=== PATIENT | male | born 1980 | race Caucasian/White ===

== ENCOUNTER 2022-09-07 02:02 | Day surgery (SDC) | payer OTHER, SELFPAY ==
[2022-09-03 14:07] VITALS: BMI 31.6
--- NOTE | 2022-09-03 14:46 | PC.NURSE ---
Report to the Outpatient Waiting Room, entrance under the green pavilion located off [facility], at time _11:00_ on date _09/07/22_. Planned Procedure Time: _1300 . Time changes happen often and if your time is changed the preop area will call you the afternoon before. - You and your visitor will be asked to self-screen and do not enter if you have any COVID symptoms. - Two visitors are permitted, but We encourage only one visitor and NO visitors under age 16 are allowed at this time. Your visitor will receive communication by the phone number that is given day of service. - The patient visitor is requested to social distance or may leave the building when not with patient due to restrictions. - A mask is OPTIONAL within the hospital. Patients may have clear liquids (water, carbonated beverages, clear teas, apple juice) until 3 hours prior to surgery with a maximum of 20 ounces. - No food from midnight until time of surgery. Take the following medications with a SIP of water the morning of surgery: _N/A Medications to discontinue per physician N/A Date to take last dose__N/A Please no make-up, nail greenlandic, hairspray, perfume, deodorant, or body powder the day of surgery. No jewelry (including any body piercings) or valuables the day of surgery, leave them at home. Please take a shower or bath the night before, or the morning of, surgery with an antibacterial soap. Wear comfortable, loose fitting clothing. - Jewelry must be removed prior to entering the operating room. Rings and piercings that are not removed may be cut off. - The hospital will not accept responsibility for valuables. - Please leave all valuables, including medications, at home the day of surgery. If you are going home after surgery, a licensed commercial trailer truck driver must drive you home. - NO public transportation without another adult. - We recommend that an adult stay with you for 24 hours following discharge. - We also recommend that you do not drive, make important decision, drink alcoholic beverages, or take any drugs that were not prescribed by your health care provider for at least 24 hours after your discharge time. Follow any additional instructions given to you from your surgeon. If you or anyone in your household have experienced Covid symptoms in the past week, please notify your surgeon or the nurse liaison at the phone number below for possible testing. Telephone instructions given to _BOB and asked if any additional questions and then verbalized understanding. Patient advised to call surgeon office or pre surgery nurse liaison [phone] if any additional questions.
[2022-09-07] VITALS (8 sets, daily range): BP systolic 96–130; BP diastolic 62–92; PULSE 60–86; RESP 12–16; TEMP 36.8–37; O2SAT 96–100
--- NOTE | 2022-09-07 12:12 | WPDHPUPDATE1 ---
History and Physical Update Update Date/Time: 09/07/22 12:12 History and Physical has been reviewed, including an updated exam of the patient. There are NO changes in the patient's condition. Risks, benefits, and alternatives have been discussed and questions answered. Patient agrees to proceed with procedure.
--- NOTE | 2022-09-07 12:17 | WPDANESEPPF ---
Anes - Initial Pre Proc Eval Procedure: Operation Date: 09/07/22 13:00 Proposed Procedures p Ventral Hernia Repair , Possible Mesh - Davonte Leonard DO Date/Time: 09/07/22 12:17 Surgeon: Davonte Leonard DO Pre Op Diagnosis: ventral hernia Patient Data Age: 42 Gender: M Height: 1.78 m Weight: 100 kg Allergies Allergy/AdvReac Type Severity Reaction Status Date / Time No Known Allergies Allergy Unverified 08/29/22 08:37 Home Medications Medication Instructions Recorded Confirmed Type No Home Medications 08/29/22 09/03/22 History Patient hx anesthesia problems: none Family hx anesthesia problems: none Results Review: All pre-operative results and documents have been reviewed as part of the pre-operative evaluation. 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 Informed Consent: The patient's anesthetic plan and its attendant risks and benefits were discussed with the patient/family/POA. Questions were solicited and answers provided to the satisfaction of the patient/family/POA.
[2022-09-07] MEDS: LACTATED RINGERS 1,000 ML 30 ML IV CONT ×2 (12:25→14:24)
[2022-09-07] MEDS: ACETAMINOPHEN 500 MG TABLET 1000 MG PO (12:25)
[2022-09-07] MEDS: KETOROLAC 15 MG/ML VIAL (*BKC) IV PUSH (12:25)
[2022-09-07] MEDS: ceFAZolin 2 GM/D5W 50 ML 2 GM/50 ML BAG IVPB (13:22)
[2022-09-07] MEDS: BUPIVACAINE/EPINEPHRINE 0.25% 50 ML VIAL INFILTRATE (14:00)
[2022-09-07] MEDS: oxyCODONE HCL (*CRX) 5 MG TAB IR PO (15:40)
--- NOTE | 2022-09-07 15:47 | W.PM.PROC2 ---
Procedure Note - Detailed Date of Procedure 09/07/22 Pre-op Diagnosis ventral hernia Post-op Diagnosis Same Procedure Performed Open ventral hernia repair with 6.[address] hernia patch Surgeon Davonte Leonard, DO Anesthesia General and Local (0.5% bupivacaine with epinephrine) Indications this is a 42-year-old man who noticed a painful bulge just above his umbilicus about 4 weeks ago. At 1st this was hard and painful and difficult to reduce, but eventually the swelling went down and he was able to reduce the area. He was found to have a 1-2 cm ventral hernia just superior to the umbilicus on exam. Discussions were made with the patient about treatment options and decision was made to proceed with ventral hernia repair with possible mesh. Findings Ventral hernia repair was performed. A 1.5 cm hernia was noted just superior to the umbilical stalk. The hernia was containing some preperitoneal fat. The hernia sac was reduced and a preperitoneal plane was developed. I created a wide enough preperitoneal plane for mesh placement and chose a 6.[address] mesh [address] within the preperitoneal pocket. No specimens were obtained for pathology. Description of Procedure Procedure as well as risks, benefits, and alternatives were discussed with the patient. Written consent was obtained and placed in chart prior to procedure. Patient was brought back to surgical suite. He was placed supine on operating table. He was then intubated by Anesthesia Department. His abdomen was prepped and draped in sterile fashion using chlorhexidine prep. 0.5% bupivacaine with epinephrine was infiltrated locally around the operative area. A 4 cm curvilinear incision was made just superior to the umbilicus using a 15 blade scalpel. Electrocautery was used for hemostasis and for dissection down through the subcutaneous fat. Hernia sac was encountered and this was carefully freed up from surrounding subcutaneous fat using electrocautery. The hernia sac was freed up all the way down to the level of the fascia, and then it was reduced back down into the abdominal cavity. The umbilical stalk was then lifted off of the fascia with electrocautery. The hernia defect was then measured. This was measuring approximately 15 mm. The decision was made to use a 6.[address] hernia patch. The peritoneum was cleared under the fascia circumferentially around the hernia using blunt dissection and electrocautery. Once a wide enough pocket was created for the mesh, the mesh was then placed within this preperitoneal pocket and laid out flat centered on the hernia defect. The mesh appeared to be sitting in proper position. The mesh was then secured to the fascia at the lateral edges using 0 Ethibond U-stitch trans fascial sutures. The fascia of the hernia defect was then reapproximated over the mesh using 0 Ethibond [id number] sutures. The repair was inspected and appeared secure. 0.5% bupivacaine with epinephrine was infiltrated around the fascia and subcutaneous space. The umbilical stalk was then reapproximated to the fascia using a 3 0 Vicryl simple interrupted suture. The deep dermis was reapproximated using 3 0 Vicryl simple interrupted sutures, and then the skin was approximated using 4 Monocryl running subcuticular suture. Exofin glue was then applied on top. The patient was then awakened from anesthesia, extubated, and transferred to recovery. Implants 6.[address] hernia patch Estimated Blood Loss 5 Complications No immediate complications Condition Stable Disposition Same day [facility] Billing Surgery - Charge Forward: Surgery Billing
== END 2022-09-07 16:12 | disposition home or self-care (01) ==
PROVIDERS: Visit Provider Surgery
PROC: 0WQF0ZZ Repair Abdominal Wall, Open Approach (ICD-10-PCS; CPT 49560; principal; 2022-09-07 13:00)
DX: K43.9 Ventral hernia without obstruction or gangrene (principal)
CPT/HCPCS: 49560; 49568; A9270; C1781; J0690; J1100; J1885; J2250; J2405; J2704; J3010; J7120